=== PATIENT | female | born 1985 | race Hispanic/Latino ===

== ENCOUNTER 2019-02-02 17:02 | Day surgery (SDC) | payer MEDICAID, OTHER ==
[2019-02-02 18:21] VITALS: BMI 34.5
[2019-02-02] MEDS ORDERED: hydrALAZINE 20 MG/ML VIAL SLOW IVP PRN (18:29)
--- NOTE | 2019-02-02 19:58 | PRG ---
DATE OF SERVICE: 02/02/2019 PRESENTING COMPLAINT: Near syncopal episodes. HISTORY OF PRESENT ILLNESS: Ms. Chamorro is a 33-year-old, G2, P1, 35 weeks' gestation, seen in clinic, who has a history of recurrent near syncopal episodes over the past month. She reports that she had one in the car today. She has had no loss of consciousness. No loss of bowel or bladder. She has no chest pain. She reports an active fetus. Antepartum record is not on the unit. OB HISTORY: . PAST MEDICAL HISTORY: None. PAST SURGICAL HISTORY: None. ALLERGIES: DENIES. MEDICATIONS: vitamins. SOCIAL HISTORY: Denies tobacco, alcohol, or drug use. FAMILY HISTORY: Noncontributory. REVIEW OF SYSTEMS: Noncontributory. PHYSICAL EXAMINATION: GENERAL: female, resting comfortably. VITAL SIGNS: Pulse 88, respirations 18, blood pressure 92/62, temperature 98.5. HEENT: Within normal limits. LUNGS: Clear to auscultation bilaterally. HEART: Regular rhythm. BREASTS: No masses bilaterally. ABDOMEN: Soft and nontender without rebound or guarding. Fundal height of 35 cm. FHTs 140s. VULVA: Without lesions. VAGINA: Deferred. EXTREMITIES: No clubbing, cyanosis, or edema. LABORATORY DATA: monitoring was carried out for greater than 1 hour with a category 1 tracing. Positive accelerations. No decelerations. 130s FHTs. EKG was carried out, which is read as normal sinus rhythm with normal QRS. No abnormalities noted. IMPRESSION: Physiologic hypotension with near syncopal episodes at 35 weeks' gestation. PLAN: Reassurance. P.o. hydration. ER precautions. Keep scheduled followup. Job ID: [id number]
== END 2019-02-02 19:45 | disposition home or self-care (01) ==
LOC: L&D/OP 17:02
PROVIDERS: ATTEND Family Medicine
DX: O99.413 Diseases of the circulatory system complicating pregnancy, third trimester (principal); I95.89 Other hypotension; Z3A.35 35 weeks gestation of pregnancy
CPT/HCPCS: 93005; 93010; 99282

== ENCOUNTER 2019-02-28 10:23 | Inpatient (IN) | payer OTHER ==
[2019-02-28 10:51] VITALS: BMI 35.5
[2019-02-28] MEDS ORDERED: Bupivacaine/Epinephrine 0.25% 30 ML VIAL ONE (11:11)
[2019-02-28 11:20] LABS: Amnisure Internal Control QC ACCEPTABLE (ACCEPTABLE); Amnisure Test RUPTURE DETECTED (No Rupture)
[2019-02-28] MEDS ORDERED: Lidocaine 1% (PF) 30 ML VIAL SC PRN (12:16)
[2019-02-28] MEDS ORDERED: hydrALAZINE 20 MG/ML VIAL SLOW IVP PRN ×2 (12:16)
[2019-02-28] MEDS ORDERED: Promethazine HCl 25 MG/ML VIAL IM PRN ×2 (12:16→19:22)
[2019-02-28] MEDS ORDERED: NS / Oxytocin 40 units/1000ml 1,000 ML IV PRN (12:16)
[2019-02-28] MEDS ORDERED: Ondansetron PF 4 MG/2 ML Vial IVP PRN ×2 (12:16→19:22)
[2019-02-28] MEDS ORDERED: Misoprostol 200 MCG TAB PR PRN (12:25)
[2019-02-28] MEDS ORDERED: Methylergonovine 0.2 MG/ML VIAL IM PRN (12:25)
[2019-02-28] MEDS ORDERED: Carboprost 250 MCG/ML AMP IM PRN (12:25)
[2019-02-28] MEDS ORDERED: NS w/ Oxytocin 10 units 500 ML IV SCH (12:30)
[2019-02-28] MEDS: Lactated Ringer's 1,000 ML IV SCH ×2 (12:35→21:56)
--- NOTE | 2019-02-28 12:43 | PDOC.FPROB ---
FMR OB H&P: HPI - History of Present Illness Chief Complaint: SROM History of Present Illness: Pt is a 33yo @ 39.1 by LMP c/w 7.3 US who presents for SROM. Patient was scheduled for induction today, however, awoke this morning at 0700 to find her clothes soaked with fluid. She states she has been having minimal vaginal fluid leakage over the past few days. No vaginal bleeding or blood noted in fluid this morning. She states she was feeling contractions this morning, but they have since subsided. Endorses good movement. No CP, SOB, N/v/d/c. Does endorse occasional GERD tx with Zantac and mild LE edema worse at the end of the day and better with elevation. She has had consistent PNC with the [facility]. Primary Care Physician: [facility] - Dr. Gerardo Strauss FMR OB H&P: Current - Care : 1 Para: 1001 Gestational age: 39.1 Dating Criteria: LMP c/w US @ 7.3 - OB Labs Blood type: A RH: negative Antibody Screen: negative HIV: negative RPR: positive (FTA-ABS negative) Rubella: immune Gonorrhea: negative Chlamydia: negative Pap Smear: NILM, HPV+ 1 hour gtt: 140 3 hour GTT: Passed A1c: 4.6 GBS: negative FMR OB H&P: History - Past Medical History PMH: GERD during , otherwise no PMHx. - OB History OB History: No complications due this or previous . Last child was born at 38ks without any complications or NICU stay. - [employer] History [employer] History: H/O trich, treated. Last Pap NILM HPV +, due for repeat in 1 year. - Surgical History Sx History: None - Social History Social History: Previous tobacco and EtOH prior to but no use during . No illicit drug use. - Family History Family History: No family history of obstetrical illness or disease. FMR OB H&P: Medications - Current Home Medications: Medication Instructions Recorded Confirmed Type Ranitidine HCl 150 mg PO DAILY 02/28/19 02/28/19 History Allergies/Adverse Reactions: Allergies Allergy/AdvReac Type Severity Reaction Status Date / Time No Known Allergies Allergy Verified 02/28/19 10:52 FMR OB H&P: ROS - Review of Systems General: denies: fever/chills, night sweats ENT: denies: nasal congestion, rhinorrhea, sore throat Cardiovascular: reports: edema (mild, worse in afternoon better in morning, relieved with elevation of lower ext.). denies: chest pain, palpitation Respiratory: denies: cough, congestion, shortness of breath Gastrointestinal: reports: indigestion, constipation. denies: abdominal pain, nausea, vomiting, diarrhea Genitourinary (Female): reports: vaginal discharge (clear), contractions ( minimal). denies: incontinence, dysuria, hematuria, vaginal bleeding Musculoskeletal: denies: pain Neurologic: denies: numbness, syncope, seizures, weakness, loss of counsciousness, headache Integumentary: denies: rash Hematologic/Lymphatic: denies: prolonged or excessive bleeding FMR OB H&P: Vital Signs - Maternal Vital signs: Vital Signs - First Documented Temp Pulse Resp BP 98.3 F 80 18 111/74 02/28/19 10:44 02/28/19 10:44 02/28/19 10:44 02/28/19 10:44 - Heart Tones Baseline: 140 Variability: moderate Acceleration: present Deceleration: absent Category: category 1 [place] contractions every: 5-8 minutes FMR OB H&P: Physical Exam - Physical Exam General: NAD, awake, alert and oriented HEENT: normocephalic and atraumatic, EOMI, MMM, grossly normal vision Neck: supple, FROM, trachea midline Heart: RRR, normal S1/S2, no murmurs/rubs/gallops, pulses present, other (mild 1 - edema to bilateral LE) General: CTAB, no respiratory distress, good air movement, no rales/rhonchi, no wheezing, no retractions Abdomen: soft, gravid, non-tender, bowel sound present Musculoskeletal: pulses present, FROM in all four extremities Neurological: no focal deficit Skin: no rash Lymphatic: no unusual bruising or bleeding Psychiatric: good judgement and insight, normal mood and affect - Pelvic Exam SVE: 2/50/-3 Lozano score: 4-6 Membranes: SROM FMR OB H&P: Results - Labs Lab results: Laboratory Results - last 24 hr 02/28/19 11:00 Amnio Swab Test RUPTURE DETECTED H FMR OB H&P: A/P - Problem List (1) SROM (spontaneous rupture of membranes) Current Visit: Yes Status: Acute Code(s): [id number] - (2) Current Visit: Yes Status: Acute Qualifiers: Weeks of gestation: 39 weeks Qualified Code(s): Z3A.39 - 39 weeks gestation of Disposition: Pending induction of labor and delivery. Anticipate hospitalization 2 days. Discussion: Pt is a 33yo @ 39.1 by LMP c/w first trimester US who presents with SROM 1. IUP - SROM - SROM @0700. Amnisure positive. - Cervical check @ 1100: 2/50/-3. Lozano 4-6. Inconsistent contractions every 5- 8 minutes. Good FM. - labs unremarkable. Consistent care at [facility] - Will start augmentation of labor with pit - Cat 1 strip with FHT 140. Will continue FHM - LR at 125ml/hr - Cervical check q2h - Pt desires epidural, Anesthesia consulted, appreciate assistance Diet: Regular, will transition to clear liquids VTE: None Code: Full Addendum - Attending - Attending Attestation Date/Time: 03/01/19 7329 I personally evaluated the patient and discussed the management with Dr. Roque I agree with the History, Examination, Assessment and Plan documented above with any addition or exceptions noted below.
[2019-02-28 13:07] LABS: Hemoglobin 11.6 g/dL (12.0-16.0); Mean Corpuscular HGB CONC 33.3 g/dL (32.0-36.0); Mean Corpuscular Hemoglobin 29.5 pg (27.0-31.0); Mean Corpuscular Volume 88.6 fL (78.0-98.0); Mean Platelet Volume 9.8 fL (7.4-10.4); Platelet Count 221 thou/uL (130-400); RBC Distribution Width 12.5 % (11.5-14.5); Red Blood Cell (RBC) Count 3.92 mill/uL (4.20-5.40); White Blood Cell (WBC) Count 6.4 thou/uL (4.8-10.8)
[2019-02-28 13:46] LABS: HBSAg Index 0.29 S/CO (0-0.99); Hep B Surf Ag Non-Reactive S/CO (NonReactive); Syphilis Antibody Nonreactive (Nonreactive); Syphilis Antibody Index 0.02 S/CO (<1.00 Non-Reactive)
--- NOTE | 2019-02-28 15:03 | PDOC.LDPN ---
Labor & Delivery Progress Note - Subjective Subjective: comfortable, loss of fluid, other (intermittantly feeling contractions) - Objective Vital signs reviewed and normal: yes General: NAD, resting Uterine fundus: non tender Dilation: 3 Effacement: 50% Station: -3 FHT: category 1 (accels, moderate variability), variability present [place] contractions every: 3-4min - Assessment (1) SROM (spontaneous rupture of membranes) Code(s): TIZ2300 - Current Visit: Yes Status: Acute (2) Current Visit: Yes Status: Acute Qualifiers: Weeks of gestation: 39 weeks Qualified Code(s): Z3A.39 - 39 weeks gestation of Plan: continue plan of care, pitocin for augmentation -: 1. IUP - SROM - Continue augmentation of labor with pit - Cat 1 strip with FHT 140. Will continue FHM - LR at 125ml/hr - Pt desires epidural, Anesthesia consulted, appreciate assistance - Cervical check once patient begins to experience consistent contractions, FHT changes, or lower abdominal pressure. Diet: Clear Liquids VTE: None Code: Full
[2019-02-28] MEDS ORDERED: Butorphanol Tartrate 1 MG/ML VIAL SLOW IVP PRN (18:13)
--- NOTE | 2019-02-28 18:27 | PDOC.EVN ---
Event Note - Event Note Event Note: painful contractions, q2-3 minutes 3/50/-2, forebag AROM 1820, clear fluid accels present, baseline 145, good variability, no decels continue pit for augmentation, currently 12 would like epidural
[2019-02-28] MEDS ORDERED: Fentanyl 4 mcg/Bup 0.1% Cadd 100 ML ONE (18:35)
[2019-02-28] MEDS ORDERED: Acetaminophen 325 MG TAB PO PRN (19:22)
[2019-02-28] MEDS ORDERED: Lactated Ringer's 500 ML IV PRN (19:22)
[2019-02-28] MEDS ORDERED: Naloxone HCl 0.4 mg/ml Vial IVP PRN ×2 (19:22)
[2019-02-28] MEDS ORDERED: diphenhydrAMINE 50 MG/ML VIAL IVP PRN (19:22)
[2019-02-28] MEDS ORDERED: ePHEDrine/0.9% NaCl/PF SYRINGE 50 mg/10 ml SLOW IVP PRN (19:22)
[2019-02-28] MEDS ORDERED: Fentanyl 4 mcg/Bupivacaine 0.1% Cassette 100 ML EPIDURAL SCH (19:30)
[2019-02-28] MEDS ORDERED: Communication Order-Pharmacy FS SCH (19:30)
[2019-02-28] MEDS ORDERED: Misoprostol 200 MCG TAB ONE (23:21)
--- NOTE | 2019-03-01 00:38 | PDOC.OPDEL ---
OB Operative/Delivery Note - Additional Findings/Plan Compilations/Other Findings: Vaginal Delivery Procedure note Delivering Physician: Dr. Vivek Hughes, Dr. Gerardo Strauss Attending: Dr. Andrade Procedure: Spontaneous Vaginal Delivery Anesthesia: epidural QBL:629 ml Pre-op Diagnosis: 1. Term intrauterine in labor Post-op Diagnosis: 1. Term intrauterine , delivered Indications: A 34 y/o female presented in active labor Delivery Note: This is 34yo F @39.1wks who delivered a viable F at 1149 on 03/01/19. She presented to L&D at noon after noting SROM 5 hours earlier when she had awoken, amnisure positive. She was started on Pitocin for labor augmentation. A forebag was AROMd with clear fluid at 1820. Patient was afebrile throughout the course. A vigorous female was delivered over an intact perineum in the EVAN position. Anterior Shoulder and then remainder of the body delivered. No nuchal cord. The head was held down and mouth and nares were bulb suctioned. Cord clamped and cut and cord blood collected. Placenta delivered intact in the [place] presentation with a 3 vessel cord noted. Fundal massage was performed and the fundus was firm. The cervix and vagina were inspected and found to be free of lacerations. Infant went to nursery in good condition for routine care. Apgars were 9/9 at 1 & 5 minutes, respectively. Patient tolerated delivery well and went to after routine recovery/ care. Addendum - Attending - Attending Attestation Date/Time: 03/01/19 5058 I personally evaluated the patient and discussed the management with Dr. STRAUSS I agree with procedure documented above with any addition or exceptions noted below. I was present and supervising the 2nd and third stages of labor. All was uncomplicated. FEtus delivered to abdomen.
[2019-03-01] MEDS ORDERED: Ondansetron PF 4 MG/2 ML Vial IVP PRN (01:50)
[2019-03-01] MEDS ORDERED: NS / Oxytocin 40 units/1000ml 1,000 ML IV SCH (01:50)
[2019-03-01] MEDS ORDERED: hydrALAZINE 20 MG/ML VIAL SLOW IVP PRN (01:50)
[2019-03-01] MEDS ORDERED: Bisacodyl 10 MG SUPP PR PRN (01:50)
[2019-03-01] MEDS ORDERED: Lanolin Ointment 7 GM TUBE TOP PRN (01:50)
[2019-03-01] MEDS ORDERED: Benzocaine-Menthol 82.5 ML CAN TOP PRN (01:50)
[2019-03-01] MEDS ORDERED: Milk Of Magnesia 30 ML UDCUP PO PRN (01:50)
[2019-03-01] MEDS: Ibuprofen 800 MG TAB PO SCH ×3 (02:49→21:48)
[2019-03-01] MEDS: HYDROcodone/Acetaminophen 5/325 mg Tablet PO PRN ×4 (04:10→19:55)
[2019-03-01 05:55] LABS: #Monocytes 0.6 thou/uL (0.11-0.59); #Neutrophils 9.9 thou/uL (1.40-6.50); %Basophils 0.1 % (0.0-1.0); %Eosinophils 0.1 % (0.0-10.0); %Lymphocytes 8.4 % (21.0-51.0); %Monocytes 5.3 % (0.0-10.0); %Neutrophils 86.1 % (42.0-75.0); Hemoglobin 10.4 g/dL (12.0-16.0); Mean Corpuscular HGB CONC 33.2 g/dL (32.0-36.0); Mean Corpuscular Hemoglobin 29.4 pg (27.0-31.0); Mean Corpuscular Volume 88.5 fL (78.0-98.0); Mean Platelet Volume 9.8 fL (7.4-10.4); Platelet Count 214 thou/uL (130-400); RBC Distribution Width 12.5 % (11.5-14.5); Red Blood Cell (RBC) Count 3.55 mill/uL (4.20-5.40); White Blood Cell (WBC) Count 11.5 thou/uL (4.8-10.8)
[2019-03-01] MEDS: Acetaminophen 325 MG TAB PO SCH ×3 (06:28→16:21)
--- NOTE | 2019-03-01 07:34 | PDOC.PP ---
Post Progress Note Post Day #: 1 Subjective: This AM patient states she is doing well. She had some intense cramping last night but had 1 dose of norco and it resolved. She is on scheduled tylenol/ ibuprofen. She is tolerating PO without difficulty. Ambulated to restroom x1 last night. PO intake tolerated: yes Flatus: yes Ambulation: yes Vital Signs (12 hours) Temp Pulse Resp BP Pulse Ox 03/01/19 05:15 98.8 F 79 20 99/57 L 03/01/19 04:15 98.5 F 77 18 102/62 03/01/19 03:15 98.3 F 82 18 115/64 98 Weight Weight 85.275 kg - Physical Examination General: NAD Cardiovascular: no m/r/g, RRR Respiratory: clear to auscultation bilaterally, non-labored breathing Abdominal: + bowel sounds, appropriately TTP Fundus firm & at: 1cm below umbilicus Extremities: negative homans (B) Neurological: no gross focal deficits Psychiatric: A&Ox3, normal affect Result Diagrams: 03/01/19 05:30 Additional Labs: Post Labs Blood Type A NEGATIVE 02/28/19 12:53 Hep Bs Antigen Non-Reactive S/CO (NonReactive) 02/28/19 12:53 (1) , delivered Code(s): O80 - ENCOUNTER FOR FULL-TERM UNCOMPLICATED DELIVERY Status: Acute (2) Status: Acute Qualifiers: Weeks of gestation: 39 weeks Qualified Code(s): Z3A.39 - 39 weeks gestation of - Assessment/Plan #PP day 1 - tyl/ibuprofen schedule, breakthrough norco - consulted, well thus far - passing gas, no BM as of yet, ambulating - reports she did not have to change pad last night # Rh neg - baby A neg - abs screen neg # Pap NILM/HR HPV+ - repeat in 1 year Wants to pursue mirena for contraception Dispo: anticipate d/c tomorrow AM
[2019-03-01] MEDS ORDERED: Adacel (T-DAP) 0.5 ML SYRINGE IM ONE (09:00)
[2019-03-01] MEDS: Docusate Calcium (SURFAK) 240 MG CAP PO SCH ×2 (09:02→19:55)
[2019-03-01] MEDS: Ferrous Sulfate 325 MG TAB PO SCH ×2 (09:05→16:20)
[2019-03-02] MEDS: Acetaminophen 325 MG TAB PO SCH ×3 (02:39→15:30)
[2019-03-02] MEDS: HYDROcodone/Acetaminophen 5/325 mg Tablet PO PRN ×3 (04:05→13:36)
[2019-03-02] MEDS: Ibuprofen 800 MG TAB PO SCH ×2 (05:56→13:35)
--- NOTE | 2019-03-02 07:14 | PDOC.PP ---
Post Progress Note Post Day #: 2 Subjective: Doing well overall. Eating and ambulating well. Less bleeding than normal menses , 3 pads yesterday. Cramping relieved with tyl/ibuprofen. PO intake tolerated: yes Flatus: yes Ambulation: yes Vital Signs (12 hours) Temp Pulse Resp BP Pulse Ox 03/02/19 04:00 97.8 F 77 20 112/65 03/01/19 22:30 98.1 F 69 20 103/64 98 Weight Weight 85.275 kg - Physical Examination General: NAD Cardiovascular: no m/r/g, RRR Respiratory: clear to auscultation bilaterally, non-labored breathing Abdominal: + bowel sounds, appropriately TTP Neurological: no gross focal deficits Psychiatric: A&Ox3, normal affect Result Diagrams: 03/01/19 05:30 Additional Labs: Post Labs Blood Type A NEGATIVE 02/28/19 12:53 Hep Bs Antigen Non-Reactive S/CO (NonReactive) 02/28/19 12:53 (1) , delivered Code(s): O80 - ENCOUNTER FOR FULL-TERM UNCOMPLICATED DELIVERY Status: Acute (2) Status: Acute Qualifiers: Weeks of gestation: 39 weeks Qualified Code(s): Z3A.39 - 39 weeks gestation of - Assessment/Plan #PP day 2 - tyl/ibuprofen schedule, breakthrough norco - consulted, - passing gas, BM w/o difficulty - reports she did not have to change pad last night # Rh neg - baby A Positive, received Rhogam - abs screen neg # Pap NILM/HR HPV+ - repeat in 1 year Wants to pursue mirena for contraception, f/u at [facility] in 2 weeks d/c today, baby pending repeat bilirubin
[2019-03-02 08:29] VITALS: BP 111/68; TEMP 97.5
[2019-03-02] MEDS: Docusate Calcium (SURFAK) 240 MG CAP PO SCH (08:32)
[2019-03-02] MEDS: Ferrous Sulfate 325 MG TAB PO SCH (08:32)
== END 2019-03-02 15:10 | disposition home or self-care (01) | DRG 807 ==
LOC: L&D/OP 10:23 → L&D 12:40 → 3SW 03-01 03:22
PROVIDERS: ADMIT Obstetrics & Gynecology; ATTEND Family Medicine
PROC: 10E0XZZ Delivery of Products of Conception, External Approach (ICD-10-PCS; principal; 2019-03-01)
DX: O42.92 Full-term premature rupture of membranes, unspecified as to length of time between rupture and onset of labor (principal); Z37.0 Single live birth; Z3A.39 39 weeks gestation of pregnancy; O99.62 Diseases of the digestive system complicating childbirth; K21.9 Gastro-esophageal reflux disease without esophagitis
CPT/HCPCS: 36415; 51702; 84112; 85025; 85027; 85461; 86780; 86850; 86900; 86901; 87340; 90384; 96372; 99285; J0595; J2001; J2405; J2590

== ENCOUNTER 2019-07-01 13:20 | Emergency (ER) | payer MEDICAID, OTHER ==
[2019-07-01 13:55] LABS: #Basophils 0.1 thou/uL (0.0-0.2); #Eosinphils 0.1 thou/uL (0.0-0.7); #Lymphocytes 1.7 thou/uL (1.20-3.40); #Monocytes 0.4 thou/uL (0.11-0.59); #Neutrophils 3.8 thou/uL (1.40-6.50); %Basophils 0.9 % (0.0-1.0); %Eosinophils 1.4 % (0.0-10.0); %Lymphocytes 27.9 % (21.0-51.0); %Monocytes 6.4 % (0.0-10.0); %Neutrophils 63.5 % (42.0-75.0); Hemoglobin 14.5 g/dL (12.0-16.0); Mean Corpuscular Hemoglobin 30.9 pg (27.0-31.0); Mean Corpuscular Volume 91.1 fL (78.0-98.0); Mean Platelet Volume 7.8 fL (7.4-10.4); Platelet Count 353 thou/uL (130-400); Red Blood Cell (RBC) Count 4.68 mill/uL (4.20-5.40)
--- NOTE | 2019-07-01 14:45 | ULT ---
TRANSABDOMINAL AND ENDOVAGINAL PELVIC ULTRASOUND: HISTORY: Pain. COMPARISON: None. TECHNIQUE: Transabdominal and endovaginal imaging of the pelvis is performed. Ovaries are interrogated with alarcon scale, color flow, Doppler imaging and spectral wave form analysis. FINDINGS: Uterus: No myometrial masses. Uterus measurin.0 x 5.1 x 6.8 cm. Endometrium: Homogeneous echotexture. Nonspecific 0.5 cm anechoic focus. Endometrium diameter: 1.1 cm. Free fluid: None. Right ovary: Normal echotexture. Right ovary measurement: 2.6 x 1.9 cm. The limited evaluation due to bowel gas. Left ovary: Normal echotexture. Left ovary measurements: 2.2 x 1.2 x 2.7 cm. Ovarian Doppler: There is vascular flow to the left and right ovary. IMPRESSION: Nonspecific 0.5 cm anechoic focus in the endometrium. Follow-up ultrasound and serial beta-hCGs are r ecommended. Transcribed Date/Time: 07/01/2019 2:53 PM
[2019-07-03 21:22] LABS: Chlamydia by PCR Not Detected (NotDetected); GC by PCR Not Detected (NotDetected)
== END 2019-07-01 16:30 | disposition home or self-care (01) ==
LOC: ERS 13:20
DX: O20.0 Threatened abortion (principal); Z3A.01 Less than 8 weeks gestation of pregnancy
CPT/HCPCS: 36415; 76856; 84702; 85025; 86900; 86901; 87480; 87491; 87510; 87591; 87660; 90384; 96372

== ENCOUNTER 2019-07-03 13:07 | Emergency (ER) | payer MEDICAID, SELFPAY | END 2019-07-03 14:49 | disposition home or self-care (01) | LOC: ERS 13:07 | DX: O20.0 Threatened abortion (principal); Z3A.01 Less than 8 weeks gestation of pregnancy | CPT/HCPCS: 36415; 84702; 99283 ==

== ENCOUNTER 2019-07-12 14:09 | Emergency (ER) | payer SELFPAY ==
--- NOTE | 2019-07-12 15:25 | ULT ---
ULTRASOUND PELVIC ULTRASOUND TRANSVAGINAL DOPPLER DUPLEX: 07/12/2019 HISTORY: A 34-year-old female with pelvic pain. TECHNIQUE: Transabdominal transducer used to evaluate intrapelvic contents using the urinary bladder as an acous tic window. Endovaginal transducer used to visualize intrapelvic contents in greater detail. Color fl ow Doppler and Pulsed Doppler spectral waveform analysis of ovaries. FINDINGS: Uterus: 8 x 6.5 x 4 cm Endometrial stripe: 1.2 cm (12 mm). Previously demonstrated tiny, subcentimeter, anechoic focus towar d the fundus, in the endometrial stripe, is no longer visualized. No intrauterine gestational sac. Right ovary: 3 x 2.5 x 2 cm Left ovary: 1 x 3.5 x 2.5 cm Uterine leiomyoma (fibroid): None identified. Blood flow in both ovaries: Present. Ovarian cyst (defined as 2 cm or greater): None. Free fluid in the cul-de-sac: None. IMPRESSION: 1) 12 mm endometrial stripe. Recommend correlation with phase of menstrual cycle. 2) Otherwise negative. MAZIN [place] POS: TPC
[2019-07-12 15:43] LABS: #Basophils 0.1 thou/uL (0.0-0.2); #Eosinphils 0.3 thou/uL (0.0-0.7); #Lymphocytes 2.4 thou/uL (1.20-3.40); #Monocytes 0.6 thou/uL (0.11-0.59); #Neutrophils 3.4 thou/uL (1.40-6.50); %Eosinophils 3.7 % (0.0-10.0); %Lymphocytes 35.6 % (21.0-51.0); %Monocytes 8.7 % (0.0-10.0); %Neutrophils 50.9 % (42.0-75.0); Mean Corpuscular Hemoglobin 31.2 pg (27.0-31.0); Mean Corpuscular Volume 91.6 fL (78.0-98.0); Mean Platelet Volume 7.8 fL (7.4-10.4); Platelet Count 312 thou/uL (130-400); RBC Distribution Width 12.9 % (11.5-14.5); Red Blood Cell (RBC) Count 4.51 mill/uL (4.20-5.40); White Blood Cell (WBC) Count 6.7 thou/uL (4.8-10.8)
[2019-07-12 15:50] LABS: Bilirubin Negative (Negative); Blood, Urine 3+ (Negative); Clarity Turbid (Clear); Glucose, Urine (Dipstick) Normal (Negative); Leukocyte Negative Leu/uL (Negative); Nitrite Negative (Negative); Protein, Urine (Dipstick) 20 mg/dL (Neg-Trace); RBC/HPF Greater than 50 HPF (0-3); Urobilinogen Normal mg/dL (Less than 2)
[2019-07-12 15:51] LABS: Bacteria/HPF 1+ HPF (None Seen)
--- NOTE | 2019-07-12 17:42 | PDOC.EVN ---
Event Note - Event Note Event Note: OBGYN Informal NOTE @3931 Informal phone consult...see dictation
--- NOTE | 2019-07-12 18:01 | PRG ---
DATE OF SERVICE: 07/12/2019 INFORMAL EMERGENCY ROOM CONSULT (NURSE PRACTITIONER PHONE CALL). TIME OF SERVICE: 1735 hours. In brief, I just cut off the phone with Aditya, who is the MOLD CAR PUSHER down in the emergency room. She briefed me on Ms. Chamorro's case. HPI: In brief, the patient is a 34-year-old G3, P2, with four months . She was seen on July 01 with some spotting and her beta-hCG at that time was 617. Her ultrasound was understandably negative. She came back in 2 days and her beta- hCG was 1056. At that time, she had some cramping and some more irregular spotting. It is important to note that she did receive RhoGAM on July 01, which was 11 days ago. She comes in today, which is July 12 (about 11 days after she was first seen) with some repeat spotting and some menstrual type of bleeding. Her beta- hCG today is 3960. RH Negative Her ultrasound shows no adnexal masses and no free fluid and an endometrial stripe of 12 mm. The "anechoic structure" that was there in the ES previously is no longer visible. Assessment and Plan: I discussed the possibility of a miscarriage versus ectopic with Aditya. As the patient is hemodynamically stable, abdomen is soft, and the ultrasound is relatively normal, I discussed that I was just not comfortable giving her methotrexate in case this is an early that is just not visible yet. We also reviewed the ACOG practice bulletin from 2018 seeking a more conservative approach to of unknown location early on. At this point, as her is just four months , it is possible that this may be a miscarriage. However, as of yet, the is of unknown location. I discussed with Aditya that there was no clinical indication for surgery at this time as she was very stable nor did I feel comfortable with methotrexate because this may be a spontaneous loss. Disposition: After reviewing the information together with Aditya, we felt that it was the most conservative plan to bring her back in 48 hours, which is July 14 for another beta-hCG check and ultrasound. If her beta-hCG is decreasing, then the history is most likely to be a miscarriage. I have noted the patient's information on our physician secure board and I will relay the information to our oncoming team as well. For now, my index of suspicion of ectopic is not very high as miscarriage is just more common, especially as she is four months , but we will continue to follow her. The patient was not seen and this is an informal consult with the nurse practitioner. Job ID: [id number] MTDD
== END 2019-07-12 17:45 | disposition home or self-care (01) ==
LOC: ERS 14:09
DX: O20.0 Threatened abortion (principal); Z3A.01 Less than 8 weeks gestation of pregnancy
CPT/HCPCS: 36415; 76856; 81003; 81015; 84702; 85025

== ENCOUNTER 2019-07-14 13:54 | Emergency (ER) | payer SELFPAY ==
[2019-07-14] MEDS ORDERED: Acetaminophen 500 MG TAB ONE (15:18)
--- NOTE | 2019-07-14 15:47 | ULT ---
PELVIC ULTRASOUND: INDICATIONS: Vaginal bleeding. Positive test. TECHNIQUE: Transabdominal and endovaginal exam performed. FINDINGS: The uterus has a normal size and position. The endometrial stripe measures 8 to 10 mm. No evidence of an intrauterine gestational sac. The visualized ovaries appear unremarkable. Color Doppler with spec tral analysis demonstrates blood flow to the ovaries. IMPRESSION: 1. No evidence of intrauterine gestation. 2. No pelvic or adnexal mass identified. Ectopic is not excluded. Recommend continued followup with serial hCG levels. POS: OFF
[2019-07-14] MEDS ORDERED: Acetaminophen 500 MG TAB PO SCH (17:15)
== END 2019-07-14 18:30 | disposition home or self-care (01) ==
LOC: ERS 13:54
DX: O03.9 Complete or unspecified spontaneous abortion without complication (principal)
CPT/HCPCS: 36415; 76856; 84702; 96372; J9250

== ENCOUNTER 2019-07-23 22:19 | Day surgery (SDC) | payer MEDICAID, OTHER, SELFPAY ==
[2019-07-23 22:43] LABS: #Basophils 0.1 thou/uL (0.0-0.2); #Eosinphils 0.1 thou/uL (0.0-0.7); #Lymphocytes 2.8 thou/uL (1.20-3.40); #Monocytes 0.6 thou/uL (0.11-0.59); #Neutrophils 8.7 thou/uL (1.40-6.50); %Basophils 0.8 % (0.0-1.0); %Lymphocytes 22.5 % (21.0-51.0); %Monocytes 4.7 % (0.0-10.0); %Neutrophils 71.1 % (42.0-75.0); Hemoglobin 14.3 g/dL (12.0-16.0); Mean Corpuscular HGB CONC 34.1 g/dL (32.0-36.0); Mean Corpuscular Hemoglobin 31.1 pg (27.0-31.0); Mean Corpuscular Volume 91.1 fL (78.0-98.0); Mean Platelet Volume 7.8 fL (7.4-10.4); Platelet Count 362 thou/uL (130-400); RBC Distribution Width 12.6 % (11.5-14.5); White Blood Cell (WBC) Count 12.3 thou/uL (4.8-10.8)
[2019-07-23 23:06] LABS: ALT (SGPT) 26 U/L (8-55); AST (SGOT) 18 U/L (5-34); Albumin 4.6 g/dL (3.5-5.0); Alkaline Phosphatase 60 U/L (40-110); Anion Gap 15 mmol/L (10-20); BUN (Urea Nitrogen) 15 mg/dL (7.0-18.7); Bilirubin, Total 0.6 mg/dL (0.2-1.2); Calc. Creatinine Clearance 0 mL/min (70-130); Calcium 9.2 mg/dL (7.8-10.44); Carbon Dioxide 20 mmol/L (22-29); Chloride 108 mmol/L (98-107); Estimated GFR-MDRD 68; Globulin 3.2 g/dL (2.4-3.5); Glucose 105 mg/dL (70-105); Potassium 3.6 mmol/L (3.5-5.1); Protein, Total 7.8 g/dL (6.0-8.3); Sodium 139 mmol/L (136-145)
[2019-07-24] MEDS ORDERED: Morphine 4 MG/ML VIAL ONE (00:04)
[2019-07-24] MEDS ORDERED: Ondansetron PF 4 MG/2 ML Vial ONE ×2 (00:05→10:18)
[2019-07-24 00:39] LABS: Bilirubin Negative (Negative); Blood, Urine 3+ (Negative); Clarity Turbid (Clear); Glucose, Urine (Dipstick) Normal (Negative); Leukocyte 25 Leu/uL (Negative); Nitrite Negative (Negative); Protein, Urine (Dipstick) 100 mg/dL (Neg-Trace); RBC/HPF Greater than 50 HPF (0-3); Squamous Epithelial 21-50 HPF (0-3); Urobilinogen Normal mg/dL (Less than 2); WBC/HPF Greater than 50 HPF (0-3)
[2019-07-24 00:49] LABS: Bacteria/HPF 1+ HPF (None Seen)
[2019-07-24 02:46] LABS: Lactic Acid 1.6 mmol/L (0.5-2.2)
[2019-07-24] MEDS ORDERED: Lidocaine 1% w/Epinephrine 1:100K 20 ML VIAL ONE (02:50)
[2019-07-24] MEDS ORDERED: Bupivacaine 0.25% HCL 30 ML VIAL ONE (02:50)
[2019-07-24] MEDS ORDERED: Midazolam HCl 2 mg/2 ml Vial ONE (03:05)
[2019-07-24] MEDS ORDERED: Fentanyl 100 MCG/2 ML VIAL ONE ×4 (03:16→06:27)
[2019-07-24] MEDS ORDERED: HYDROmorphone 0.5 MG/0.5 ML SYRINGE ONE (03:16)
[2019-07-24] MEDS ORDERED: HYDROcodone/Acetaminophen 5/325 mg Tablet ONE (07:22)
--- NOTE | 2019-07-24 08:37 | ULT ---
PRELIMINARY REPORT/[facility]/EMERGENCY AFTER HOURS PROCEDURE: EXAM: Ultrasound examination of the pelvis CLINICAL HISTORY: 34-year-old woman with abdominal and pelvic pain as well as vaginal bleeding, possible miscarriage 2 weeks ago, quantitative hCG 734. TECHNIQUE: Transvaginal pelvic ultrasound (complete) with image documentation. COMPARISON: None provided. FINDINGS: ENDOMETRIUM: Normal thickness. UTERUS/CERVIX: Anteverted and anteflexed uterus measures 8.2 x 5.2 x 4.4 cm. In stripe measures 4 mm. RIGHT OVARY: Right ovary was not observed. LEFT OVARY: Left ovary measures 2 x 1.2 x 2.3 cm with normal color and spectral Doppler flow. FREE FLUID: Small moderate amount of complex fluid within the cul-de-sac. MISCELLANEOUS: The cigar head pegger reported that the patient expansion significant pain with endovaginal exam. IMPRESSION: 1. Limited exam on the basis of non-visualization of right ovary. 2. Given hCG of 734, early remains within the differential. Likewise, ectopic i s also possible. Recommend continued trending of beta-hCG and follow-up ultrasound in 5-7 days. Rec ommend consultation with [employer]LECTION OPERATOR. 3. Nonspecific complex fluid within the cul-de-sac. ELECTRONICALLY SIGNED BY: Richard Bhatia D.O. Jul 24, 2019 1:30:32 AM [employer] This report is intended for review by the ordering physician only, in accordance of law. If you recei ve this report in error, please call [facility] at [phone]. FINAL REPORT ENDOVAGINAL PELVIC ULTRASOUND: HISTORY: Status post possible miscarriage 2 weeks ago. COMPARISON: 07/14/2019. FINDINGS: Uterus identified, without mass. Endometrium has a slightly heterogeneous echotexture, measuring 0.4 cm. No evidence of gestational sac, yolk sac, or pole. There is complex fluid in the cul-de- sac. Right ovary is not appreciated. Left ovary is also poorly defined but has a grossly unremarkab le echotexture. IMPRESSION: This report is in agreement with the preliminary report by [facility]. Limited evaluation of t he right ovary. No evidence of a gestational sac, yolk sac, or pole in the endometrium. Given the current positive serum beta HCG, differential considerations include ectopic versus re tained products of conception versus early intrauterine gestation. Correlate clinically. Complex fl uid in the cul-de-sac is noted. Correlate with follow up ultrasound and beta-HCG. POS: OFF
[2019-07-24] MEDS ORDERED: Rocuronium Bromide 10 MG/ML (10ML VIAL) ONE (10:18)
[2019-07-24] MEDS ORDERED: Ketorolac Tromethamine 30 MG/ML VIAL ONE (10:18)
[2019-07-24] MEDS ORDERED: PHENYLEPHRINE-NS 100 MCG/ML 10 ML SYRINGE ONE (10:18)
[2019-07-24] MEDS ORDERED: Succinylcholine Chloride 20 MG/ML 10 ml SYRINGE FS ONE (10:18)
[2019-07-24] MEDS ORDERED: PROPOFOL 200 MG/20 ML VIAL ONE (10:18)
[2019-07-24] MEDS ORDERED: Dexamethasone 20 MG/5 ML VIAL ONE (10:18)
[2019-07-24] MEDS ORDERED: Glycopyrrolate 0.2 MG/ML 5 ML SYRINGE ONE (10:18)
[2019-07-24] MEDS ORDERED: Lidocaine 1% PF 5 ML VIAL ONE (10:18)
--- NOTE | 2019-07-24 11:16 | OP ---
DATE OF PROCEDURE: 07/24/2019 PREOPERATIVE DIAGNOSIS: Suspected ruptured ectopic . POSTOPERATIVE DIAGNOSIS: Ruptured ectopic . PROCEDURES PERFORMED: 1. Diagnostic laparoscopy. 2. Laparoscopic partial right salpingectomy. ANESTHESIA: General endotracheal. ESTIMATED BLOOD LOSS: 150 mL. FINDINGS: 1. Ruptured ectopic of the midportion of the right fallopian tube. 2. Normal-appearing uterus, normal-appearing left adnexa. 3. 100 to 150 mL hemoperitoneum. COMPLICATIONS: None. BRIEF PATIENT DESCRIPTION: Ms. Chamorro is a 34-year-old , G3, P2, who presents to the ER early this morning complaining of acute onset of sharp right-sided abdominal pain at 8:45 this evening. She does have some nausea, but no vomiting. Of note is the fact that she was treated for presumed ectopic on 07/14 with methotrexate. At the time of her treatment, her beta-hCG was 4153. Tonight, it returns at 734, however, on ultrasound, there is a complex area of potential blood clot in her posterior cul-de-sac and the right ovary is not visualized. On physical exam, she is markedly tender and she does have guarding and rebound. Due to this history, decision was made to proceed to the OR due to concern of ruptured ectopic . Informed consent was obtained. The risk of anesthesia, bleeding, infection as well as damage to adjacent organs was discussed with her in detail and she wishes to proceed. TECHNIQUE IN DETAIL: After good general endotracheal anesthesia was achieved, the patient was prepped and draped in the dorsal lithotomy position using the Master stirrups. Arellano catheter had been placed in the bladder. A speculum was placed in the vagina and a single-tooth tenaculum was used to grasp the cervix. The cervix was open and a gentle curettage was done in the uterus and there was only a small amount of tissue submitted for pathological analysis. The Hulka tenaculum was then placed through the cervix and used to grasp the anterior lip. The speculum was then removed. Attention was then turned to the abdominal cavity, where a small infraumbilical incision was made. A Veress needle was placed into the peritoneal cavity and correct placement was ascertained using the saline test. The abdomen was then insufflated with 4 L of carbon dioxide gas. A 5-mm trocar and sleeve were then placed through the infraumbilical incision. Once correct placement was ascertained into the peritoneal cavity, and it could be seen at that time that there was blood in the pelvis. At that time, decision was made to place two 5-mm ports on both the right and left side under direct vision. Once this was established, suction irrigation was used to clear the pelvis and it could be seen clearly that there was a ruptured ectopic of the midportion of the right fallopian tube. The uterus was normal in size, shape, and contour. The left adnexa were completely normal. The ectopic was grasped with the atraumatic instrument. The LigaSure was then used to excise the ectopic in a sequential fashion. Good hemostasis was noted after this segmental resection. The pelvis was then thoroughly irrigated of all clots and debris. The area of excision was noted to be hemostatic. A 10-mm trocar and sleeve were then placed through the infraumbilical incision. The specimen was then placed in the EndoBag and removed from the abdomen. The fascia of the infraumbilical incision was closed under direct vision. All gas was allowed to escape from the peritoneal cavity from the lower ports. These ports were then removed and the skin of all incisions was closed in a subcuticular fashion with Dermabond placed after subcuticular closure. The skin incisions had been infiltrated with Marcaine and epinephrine mix. Attention was then turned to the vagina. The Hulka tenaculum was then removed from the cervix and there was a bleeding point in the anterior cervix. A single 2-0 chromic suture was placed across this area for good hemostasis. All instruments were then removed from the vagina once hemostasis was assured. Arellano was removed and the patient was awakened and taken to the recovery room in good condition. Orders were written for her to go home if she tolerates her stay in the recovery room and her was counseled to have her return to [facility] in 2 weeks for postop review. Job ID: [id number]
--- NOTE | 2019-07-24 17:46 | PDOC.EVN ---
Event Note - Event Note Event Note: Pt is a 34yo pod #0 s/p laproscopic treatment of ruptured ectopic discharged home today on ibuprofen and tylenol 3 calling in reporting the tylenol three is not helping much. She reports pain 6.5-7/10 which is an improvement from last night when she first presented but she is unable to rest. I have instructed her to stop taking the tylenol #3. I am calling in tramadol 50mg 1-2tabs po q4hrs prn pain #20. she is to continue with ibuprofen 800mg tid with the tramadol and regular tylenol as directed.
--- NOTE | 2019-07-26 07:42 | PDOC.EVN ---
Event Note - Event Note Event Note: Post Discharge Chart Check: Path with right tube POC identified...uterine curretting negative
== END 2019-07-24 09:20 | disposition home or self-care (01) ==
LOC: ERS 22:19 → SDC/OP 07-24 04:00
PROVIDERS: ATTEND Obstetrics & Gynecology
PROC: 10T24ZZ Resection of Products of Conception, Ectopic, Percutaneous Endoscopic Approach (ICD-10-PCS; principal; 2019-07-24)
PROC: 0UT54ZZ Resection of Right Fallopian Tube, Percutaneous Endoscopic Approach (ICD-10-PCS; principal; 2019-07-24)
DX: O00.101 Right tubal pregnancy without intrauterine pregnancy (principal)
CPT/HCPCS: 36415; 76856; 80053; 81003; 81015; 83605; 84702; 85025; 86850; 86870; 86900; 86901; 87040; 88305; J1100; J1170; J1885; J2001; J2250; J2270; J2405; J2704; J3010; S0020

== ENCOUNTER 2020-08-23 12:33 | Emergency (ER) | payer SELFPAY ==
[2020-08-23 13:05] LABS: #Eosinphils 0.1 thou/uL (0.0-0.7); #Lymphocytes 1.7 thou/uL (1.20-3.40); #Monocytes 0.4 thou/uL (0.11-0.59); #Neutrophils 4.3 thou/uL (1.40-6.50); %Basophils 0.1 % (0.0-1.0); %Eosinophils 1.1 % (0.0-10.0); %Lymphocytes 26.2 % (21.0-51.0); %Monocytes 5.9 % (0.0-10.0); %Neutrophils 66.7 % (42.0-75.0); Mean Corpuscular HGB CONC 34.9 g/dL (32.0-36.0); Mean Corpuscular Hemoglobin 33.2 pg (27.0-31.0); Mean Platelet Volume 8.3 fL (7.4-10.4); Platelet Count 319 thou/uL (130-400); RBC Distribution Width 11.9 % (11.5-14.5); Red Blood Cell (RBC) Count 4.54 mill/uL (4.20-5.40); White Blood Cell (WBC) Count 6.4 thou/uL (4.8-10.8)
[2020-08-23 13:29] LABS: Bilirubin Negative (Negative); Blood, Urine Negative (Negative); Clarity Clear (Clear); Glucose, Urine (Dipstick) Normal (Negative); Ketone, Urine 100 mg/dL (Negative); Leukocyte Negative Leu/uL (Negative); Nitrite Negative (Negative); Protein, Urine (Dipstick) 10 mg/dL (Neg-Trace); Specific Gravity, Urine 1.027 (1.002-1.036); Urobilinogen Normal mg/dL (Less than 2)
[2020-08-23 13:30] LABS: ALT (SGPT) 53 U/L (8-55); AST (SGOT) 25 U/L (5-34); Albumin 4.1 g/dL (3.5-5.0); Alkaline Phosphatase 43 U/L (40-110); Anion Gap 13 mmol/L (10-20); BUN (Urea Nitrogen) 6 mg/dL (7.0-18.7); Bilirubin, Total 0.6 mg/dL (0.2-1.2); Calc. Creatinine Clearance 0 mL/min (70-130); Calcium 8.7 mg/dL (7.8-10.44); Carbon Dioxide 21 mmol/L (22-29); Chloride 107 mmol/L (98-107); Glucose 136 mg/dL (70-105); Potassium 3.6 mmol/L (3.5-5.1); Protein, Total 7.1 g/dL (6.0-8.3); Sodium 137 mmol/L (136-145)
--- NOTE | 2020-08-23 14:43 | ULT ---
Obstetric sonogram transabdominal and transvaginal imaging HISTORY: Early . Bleeding. FINDINGS: Urinary bladder is decompressed. Uterus measures up to 3.5 cm. Gestational sac within the e ndometrial cavity contains a tiny yolk sac and pole heart motion at 111 bpm. Size correlates with 6 weeks 2 days gestational age. No free fluid in the pelvis. Neither ovary visualized with transabdominal or transvaginal imaging. IMPRESSION : Single early intrauterine gestation. Estimated gestational age 6 weeks 2 days.
== END 2020-08-23 15:40 | disposition home or self-care (01) ==
LOC: ERS 12:33
DX: O20.0 Threatened abortion (principal); Z3A.01 Less than 8 weeks gestation of pregnancy
CPT/HCPCS: 36415; 76856; 80053; 81003; 84702; 85025; 86900; 86901; 90384; 96372

== ENCOUNTER 2020-11-20 14:42 | Emergency (ER) | payer MEDICAID, OTHER | END 2020-11-20 17:00 | disposition home or self-care (01) | LOC: ERS 14:42 | DX: O9A.212 Injury, poisoning and certain other consequences of external causes complicating pregnancy, second trimester (principal); S39.012A Strain of muscle, fascia and tendon of lower back, initial encounter; W50.0XXA Accidental hit or strike by another person, initial encounter; Z3A.19 19 weeks gestation of pregnancy | CPT/HCPCS: 76815 ==

== ENCOUNTER 2020-12-29 12:04 | Emergency (ER) | payer OTHER ==
[2020-12-29] MEDS ORDERED: Metoclopramide HCl 10 MG/2 ML VIAL ONE (12:27)
[2020-12-29 12:42] LABS: #Monocytes 0.5 thou/uL (0.11-0.59); #Neutrophils 8.9 thou/uL (1.40-6.50); %Basophils 0.3 % (0.0-1.0); %Eosinophils 0.4 % (0.0-10.0); %Lymphocytes 9.4 % (21.0-51.0); %Neutrophils 84.8 % (42.0-75.0); Hemoglobin 13.6 g/dL (12.0-16.0); Mean Corpuscular HGB CONC 35.1 g/dL (32.0-36.0); Mean Corpuscular Hemoglobin 32.6 pg (27.0-31.0); Mean Corpuscular Volume 92.9 fL (78.0-98.0); Mean Platelet Volume 8.3 fL (7.4-10.4); Platelet Count 282 thou/uL (130-400); RBC Distribution Width 12.2 % (11.5-14.5); Red Blood Cell (RBC) Count 4.19 mill/uL (4.20-5.40); White Blood Cell (WBC) Count 10.5 thou/uL (4.8-10.8)
[2020-12-29 13:05] LABS: ALT (SGPT) 15 U/L (8-55); AST (SGOT) 15 U/L (5-34); Albumin 3.5 g/dL (3.5-5.0); Alkaline Phosphatase 62 U/L (40-110); Anion Gap 13 mmol/L (10-20); BUN (Urea Nitrogen) 5 mg/dL (7.0-18.7); Bilirubin, Total 0.4 mg/dL (0.2-1.2); Calc. Creatinine Clearance 0 mL/min (70-130); Carbon Dioxide 19 mmol/L (22-29); Chloride 107 mmol/L (98-107); Globulin 3.3 g/dL (2.4-3.5); Glucose 114 mg/dL (70-105); Lipase 13 U/L (8-78); Potassium 3.6 mmol/L (3.5-5.1); Protein, Total 6.8 g/dL (6.0-8.3); Sodium 135 mmol/L (136-145)
== END 2020-12-29 15:15 | disposition home or self-care (01) ==
LOC: ERS 12:04
DX: O99.352 Diseases of the nervous system complicating pregnancy, second trimester (principal); G43.909 Migraine, unspecified, not intractable, without status migrainosus; Z3A.25 25 weeks gestation of pregnancy
CPT/HCPCS: 76705; 80053; 83605; 83690; 85025; 96365; J2765

== ENCOUNTER 2021-10-01 16:23 | Emergency (ER) | payer OTHER ==
[2021-10-01 16:47] LABS: #Basophils 0.1 thou/uL (0.0-0.2); #Eosinphils 0.1 thou/uL (0.0-0.7); #Lymphocytes 1.4 thou/uL (1.20-3.40); #Monocytes 0.4 thou/uL (0.11-0.59); #Neutrophils 5.4 thou/uL (1.40-6.50); %Basophils 1.2 % (0.0-1.0); %Eosinophils 1.3 % (0.0-10.0); %Lymphocytes 18.8 % (21.0-51.0); %Monocytes 4.9 % (0.0-10.0); %Neutrophils 73.9 % (42.0-75.0); Hemoglobin 14.3 g/dL (12.0-16.0); Mean Corpuscular HGB CONC 33.2 g/dL (32.0-36.0); Mean Corpuscular Hemoglobin 32.9 pg (27.0-31.0); Mean Corpuscular Volume 99.3 fL (78.0-98.0); Mean Platelet Volume 7.7 fL (7.4-10.4); Platelet Count 314 thou/uL (130-400); RBC Distribution Width 12.4 % (11.5-14.5); Red Blood Cell (RBC) Count 4.34 mill/uL (4.20-5.40); White Blood Cell (WBC) Count 7.3 thou/uL (4.8-10.8)
[2021-10-01 17:20] LABS: BHCG - Serum Negative (NEGATIVE); Pregs Control Background? CLEAR/WHITE (CLR/WHITE); Pregs Control Bar Appear? YES (CONTROL BAR)
[2021-10-01 17:21] LABS: ALT (SGPT) 12 U/L (8-55); AST (SGOT) 15 U/L (5-34); Albumin 4.2 g/dL (3.5-5.0); Alkaline Phosphatase 54 U/L (40-110); Anion Gap 11 mmol/L (10-20); BUN (Urea Nitrogen) 12 mg/dL (7.0-18.7); Bilirubin, Total 0.5 mg/dL (0.2-1.2); Calc. Creatinine Clearance 0 mL/min (70-130); Carbon Dioxide 23 mmol/L (22-29); Chloride 108 mmol/L (98-107); Globulin 3.4 g/dL (2.4-3.5); Glucose 87 mg/dL (70-105); Lipase 28 U/L (8-78); Potassium 3.8 mmol/L (3.5-5.1); Protein, Total 7.6 g/dL (6.0-8.3); Sodium 138 mmol/L (136-145)
== END 2021-10-01 18:10 | disposition home or self-care (01) ==
LOC: ERS 16:23
DX: K80.20 Calculus of gallbladder without cholecystitis without obstruction (principal)
CPT/HCPCS: 36415; 76705; 80053; 83690; 84703; 85025

== ENCOUNTER 2021-10-30 10:54 | Day surgery (SDC) | payer OTHER ==
[2021-10-29 09:53] VITALS: BMI 40.4
[2021-10-30] MEDS ORDERED: Ketorolac Tromethamine 30 MG/ML VIAL ONE (11:20)
[2021-10-30] MEDS ORDERED: Acetaminophen 500 MG TAB ONE (11:20)
[2021-10-30] MEDS ORDERED: Midazolam HCl 2 mg/2 ml Vial ONE (13:00)
[2021-10-30] MEDS ORDERED: Fentanyl 100 MCG/2 ML VIAL ONE ×4 (13:09→15:32)
[2021-10-30] MEDS ORDERED: Dexmedetomidine 200 MCG/2 ML VIAL ONE (13:09)
[2021-10-30] MEDS ORDERED: Lidocaine 1% w/Epinephrine 1:100K 30 ML VIAL ONE (13:17)
[2021-10-30] MEDS ORDERED: Bupivacaine 0.25% 10 ML VIAL ONE (13:17)
[2021-10-30] MEDS ORDERED: ceFAZolin 2 GM/Dextrose 50 ML IVPB ONE (13:25)
[2021-10-30] MEDS ORDERED: Ondansetron PF 4 MG/2 ML Vial ONE (15:10)
[2021-10-30] MEDS ORDERED: HYDROcodone/Acetaminophen 5/325 mg Tablet ONE (16:32)
== END 2021-10-30 17:30 | disposition home or self-care (01) ==
LOC: SDC 10:54
PROVIDERS: ATTEND Specialist
PROC: 0FT44ZZ Resection of Gallbladder, Percutaneous Endoscopic Approach (ICD-10-PCS; principal; 2021-10-30)
DX: K80.10 Calculus of gallbladder with chronic cholecystitis without obstruction (principal); E66.01 Morbid (severe) obesity due to excess calories; Z68.41 Body mass index [BMI] 40.0-44.9, adult; Z79.899 Other long term (current) drug therapy; Z88.5 Allergy status to narcotic agent; Z87.891 Personal history of nicotine dependence
CPT/HCPCS: 88304; C1713; J0690; J1885; J2250; J2405; J3010; S0020

== ENCOUNTER 2022-02-07 21:12 | Emergency (ER) | payer OTHER ==
[2022-02-08] MEDS ORDERED: Acetaminophen 500 MG TAB ONE (00:13)
== END 2022-02-08 00:27 | disposition home or self-care (01) ==
LOC: ERS 21:12
DX: M25.561 Pain in right knee (principal)

== ENCOUNTER 2023-06-07 10:43 | Emergency (ER) | payer SELFPAY ==
[2023-06-07] MEDS ORDERED: Acetaminophen 500 MG TAB ONE (13:36)
[2023-06-07] MEDS ORDERED: Prochlorperazine 10 MG/2 ML VIAL ONE ×2 (13:36→13:43)
[2023-06-07] MEDS ORDERED: Ketorolac Tromethamine 30 MG/ML VIAL ONE (13:38)
[2023-06-07 13:58] LABS: #Eosinphils 0.1 thou/uL (0.0-0.7); #Monocytes 0.5 thou/uL (0.11-0.59); #Neutrophils 9.5 thou/uL (1.40-6.50); %Basophils 0.3 % (0.0-1.0); %Eosinophils 0.4 % (0.0-10.0); %Lymphocytes 13.7 % (21.0-51.0); %Monocytes 3.9 % (0.0-10.0); %Neutrophils 81.4 % (42.0-75.0); Hematocrit 46.8 % (36.0-47.0); Hemoglobin 16.8 g/dL (12.0-16.0); Mean Corpuscular HGB CONC 35.9 g/dL (32.0-36.0); Mean Corpuscular Hemoglobin 34.6 pg (27.0-31.0); Mean Corpuscular Volume 96.5 fl (78.0-98.0); Mean Platelet Volume 10.7 fL (7.4-10.4); Platelet Count 318 10x3/uL (130-400); RBC Distribution Width 12.8 % (11.5-14.5); Red Blood Cell (RBC) Count 4.85 mill/uL (4.20-5.40); White Blood Cell (WBC) Count 11.7 10x3/uL (4.8-10.8)
[2023-06-07] MEDS ORDERED: Magnesium 2 GM/50 ML(in water) 2 GM in Premix 1 BAG IVPB SCH (14:15)
[2023-06-07 14:29] LABS: ALT (SGPT) 179 U/L (8-55); AST (SGOT) 74 U/L (5-34); Albumin 4.9 g/dL (3.5-5.0); Alkaline Phosphatase 81 U/L (40-110); Anion Gap 15 mmol/L (10-20); BUN (Urea Nitrogen) 6 mg/dL (7.0-18.7); Bilirubin, Total 0.8 mg/dL (0.2-1.2); Calc. Creatinine Clearance 0 mL/min (70-130); Calcium 9.8 mg/dL (7.8-10.44); Carbon Dioxide 23 mmol/L (22-29); Chloride 101 mmol/L (98-107); Estimated GFR 109; Globulin 3.2 g/dL (2.4-3.5); Glucose 104 mg/dL (70-105); Potassium 3.5 mmol/L (3.5-5.1); Protein, Total 8.1 g/dL (6.0-8.3); Sodium 135 mmol/L (136-145)
[2023-06-07 14:29] LABS: SARS-CoV-2 NAA Rapid Test Not Detected (NotDetected)
== END 2023-06-07 14:40 | disposition home or self-care (01) ==
LOC: ERS 10:43
DX: R51.9 Headache, unspecified (principal); R05.9 Cough, unspecified; K21.9 Gastro-esophageal reflux disease without esophagitis; Z20.822 Contact with and (suspected) exposure to COVID-19
CPT/HCPCS: 71045; 80053; 85025; 96365; 96375; J0780; J1885; J3475; U0002

== ENCOUNTER 2024-02-13 22:18 | Emergency (ER) | payer SELFPAY ==
[2024-02-13] MEDS ORDERED: Acetaminophen 500 MG TAB ONE (22:48)
[2024-02-14 00:47] LABS: Influenza A by NAA Not Detected (NotDetected); Influenza B by NAA Not Detected (NotDetected); SARS-CoV-2 NAA Rapid Test DETECTED (NotDetected)
== END 2024-02-14 01:10 | disposition home or self-care (01) ==
LOC: ERS 22:18
DX: U07.1 COVID-19 (principal)
CPT/HCPCS: 71045